=== PATIENT | female | born 1975 | race Caucasian/White ===

== ENCOUNTER → 2018-02-13 07:41 | Outpatient (CLI) | payer BC, SELFPAY ==
--- NOTE | 2018-02-13 13:20 | ASPS_PTH ---
PATIENT: NEREYDA FROST LOC: [facility] U#:[id number] AGE/SX: 49/F ROOM: RE02/13/[address]: Dr. Mahad Hilliard MD : 1975 BED: DIS: SPEC #: [id number] RECD: 02/14/18 07:28 STATUS: ZIA JACKY #: [id number] JOSHUA: 02/13/18 13:[address]: Mahad Hilliard DEPT: CYTOLOGY RECD BY: Niall Elam ENTERED: 02/14/18 08:47 SP TYPE: ASPIRATION OTHR DR: Dr. Brando Chaudhry DO Tissues: Thyroid gland, NOS Procedures: Pap Stain (control) Special Stain Group II Cytology Other HEADER OPERATION: Left thyroid FNA PRE-OP DIAGNOSIS: Left thyroid nodules TISSUE SUBMITTED: Left thyroid slides (8 slides) DIAGNOSIS CYTOLOGY Left thyroid nodule, FNA (smears): Consistent with benign follicular nodule. Adequate for evaluation. See comment. SJ:bossman 02/15/18 COMMENT Please make reference to previous specimen ([id number]), left thyroid nodule, ultrasound-guided FNA with diagnosis of benign follicular nodule, favor colloid nodule. Correlation with clinical, radiologic findings and appropriate follow up are necessary. CYTOLOGY STUDY Slides are reviewed. CYTOLOGY GROSS Received are eight smears labeled with the patient's name and designated per the requisition as left thyroid. Submitted for staining. / 02/14/18 TC:5 CPT: 72879
== END ==
PROVIDERS: Family Provider Student in an Organized Health Care Education/Training Program; PCP Student in an Organized Health Care Education/Training Program; Referring Provider Surgery; Visit Provider Surgery
DX: E04.1 Nontoxic single thyroid nodule (principal)
CPT/HCPCS: 88161; 88313

== ENCOUNTER → 2019-03-13 10:52 | Outpatient (CLI) | payer BC, SELFPAY ==
[2019-03-13 10:40] VITALS: BMI 20.7
--- NOTE | 2019-03-13 10:53 | RAD_ITS ---
STUDY: X-RAY - LUMBAR SPINE REASON FOR EXAM: Female, 43 years old. Low back pain TECHNIQUE: 4 view(s) of the lumbar spine were obtained including flexion and extension. COMPARISON: None FINDINGS: Normal lumbar lordosis. There is moderate to severe dextro scoliosis. There is a normal alignment of the vertebrae. No evidence for acute fracture or subluxation. There is narrowing of the L4-5 and L5-S1 disc spaces. Films obtained in flexion-extension demonstrate no evidence for gross instability The soft tissue structures are unremarkable. RAD/L/S Spine Min 4 Views IMPRESSION: Scoliosis and degenerative changes. No acute fracture or other significant bony pathology Electronically Signed: Jaron Rodriguez MD at 22:58 EDT , Service support ,
== END ==
PROVIDERS: Family Provider Student in an Organized Health Care Education/Training Program; PCP Student in an Organized Health Care Education/Training Program; Referring Provider Physician Assistant; Visit Provider Physician Assistant
DX: M54.5 Low back pain (principal)
CPT/HCPCS: 72110

== ENCOUNTER 2019-05-05 07:00 | Outpatient (RCR) | payer BC, SELFPAY ==
[2019-03-13 10:40] VITALS: BMI 20.7
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
--- NOTE | 2019-05-05 07:49 | HP.PTDCSUM ---
HP - PT D/C Summary It has been my pleasure to treat NEREYDA FROST under orders from ELSY Nesbitt, for the diagnosis of SI Joint Dysfunction for a total of 6 visit(s). Discharge Date: Please see the following information for a summary of their discharge status. - Subjective Subjective: Patient reports that she is a lot better- she is really happy with her progress and is I with HEP in the gym. Would like a print off of her exercises to take with her to the [facility] - Overall Improvement % Improvement: 98 - Objective Objective/Function: Patient was able to complete without incidence. When arriving at the clinic pt pelvis was slightly rotated. She was easily corrected with MET technique. Given written HEP and appropriate for d/c- encouarged to call if questions arise. - Goals Goal 1:: Pt. will be I w/ HEP & progression Goal 2:: Pt. will demo 5/5 hip strength Goal 3:: Pt. will amb. > 300 ft w/ normalized gait pattern. Goal 4:: Pt. will maintain proper posture t/o tx session to demo improved core strength. - Plan Plan: Discharge to I HEP - D/C Information If there are questions or concerns regarding this patient's physical therapy, please feel free to call me at [phone]. Thank you for the referral of this patient. Sincerely, Iwona Figueroa DPT
== END 2019-05-05 19:00 | disposition home or self-care (01) ==
LOC: PT 07:00
PROVIDERS: Family Provider Student in an Organized Health Care Education/Training Program; PCP Student in an Organized Health Care Education/Training Program; Referring Provider Physician Assistant; Visit Provider Physician Assistant
DX: M54.5 Low back pain (principal); M53.3 Sacrococcygeal disorders, not elsewhere classified
CPT/HCPCS: 97110; 97161; 97530

== ENCOUNTER 2023-08-03 15:45 | Emergency (ER) | payer BC, SELFPAY ==
[2023-08-03 15:46] VITALS: BP 117/90; PULSE 79; RESP 18; TEMP 36.7; O2SAT 99; BMI 21.2
--- NOTE | 2023-08-03 16:27 | CT_ITS ---
STUDY: CT ABDOMEN AND PELVIS WITH CONTRAST REASON FOR EXAM: Female, 47 years old. RLQ pain RADIATION DOSAGE (If Supplied By Facility): CTDIvol = ( 11.27 ) mGy, DLP = ( 438.87 ) mGycm TECHNIQUE: Transaxial images were obtained from the dome of the diaphragm to the symphysis pubis without oral contrast. IV 100mL Isovue-300 was administered. Sagittal and coronal images were reconstructed. Individualized dose optimization techniques were used for this CT. COMPARISON: None. FINDINGS: The visualized lung bases are unremarkable. The visualized portions of the heart are within normal limits. Normal liver. There are surgical clips in the gallbladder fossa consistent with a prior cholecystectomy. Normal spleen. Normal pancreas. Normal bilateral adrenal glands. Normal right kidney. Normal left kidney. Evaluation of the GI tract is limited by absence of oral contrast. Cannot exclude stomach wall thickening. No dilated loops of bowel or evidence for obstruction. Cannot exclude segmental thickening of the peres of the small or large bowel. Cannot exclude enteritis or colitis. Moderate diffuse fecal retention. Appendix within normal limits. Normal abdominal aorta. Normal inferior vena cava. Normal retroperitoneum. Normal urinary bladder. Moderately large uterus for age. Thickened endometrial echoes measuring 1.6 cm across. Pelvic ultrasound is recommended. Normal abdominal wall. Normal osseous structures. CT/Abdomen/Pelvis W IV Cont ONLY IMPRESSION: Suspicious appearance of the uterus and endometrial echoes. Pelvic ultrasound recommended. No other definite abnormalities. Electronically Signed: Isac Malone MD at 17:55 EDT ,
--- NOTE | 2023-08-03 16:29 | ED.VIS.GI ---
HPI <ELSY Harris - Last Filed: 08/03/23 21:37> HPI - GI History of Present Illness Chief Complaint: Abd Pain Narrative Narrative: Patient presenting today due to nausea and right lower quadrant abdominal pain that started around 3:30 AM this morning and woke her out of her sleep. She reports that the pain has been sharp and constant since. She has noticed that she has been burping and passing more gas today. She reports a previous history of cholecystectomy, no other abdominal surgeries. She went to urgent care and they urged her to come into the emergency department due to concerns for appendicitis. She denies any history of ovarian cysts or kidney stones. She denies fevers, chills, urinary symptoms, vomiting, and diarrhea. PFSH <ELSY Harris - Last Filed: 08/03/23 21:37> [facility] Medical History (Updated 08/03/23 @ 22:[address] 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,borag oils 200 mg capsule 1 cap PO DAILY 02/07/18 [History Last Taken 08/03/23] magnesium 30 mg tablet 30 mg PO DAILY 02/07/18 [History Last Taken 08/03/23] potassium chloride 10 mEq tablet,extended release 10 meq PO DAILY 02/07/18 [History Last Taken 08/03/23] zinc 50 mg tablet 50 mg PO DAILY 02/07/18 [History Last Taken 08/03/23] Allergy/AdvReac Type Severity Reaction Status Date / Time albuterol [From Ventolin HFA] AdvReac Mild hyperventil Verified 08/03/23 15:46 ation Family History Brother Psoriatic arthritis Surgical History History of arthroscopy History of cholecystectomy History of colonoscopy History of esophagogastroduodenoscopy (EGD) Social History Smoking Status: Never smoker ROS <ELSY Harris - Last Filed: 08/03/23 21:37> ROS ED Constitutional Constitutional ED: Denies chills or fever(s) Cardiovascular Cardiovascular: Denies chest pain Respiratory/Chest Respiratory/Chest: Denies cough or dyspnea Gastrointestinal Gastrointestinal: Reports abdominal pain and nausea; Denies constipation, diarrhea, melena or vomiting Genitourinary Genitourinary ED: Denies dysuria, hematuria or urinary urgency Musculoskeletal Musculoskeletal: Denies arthralgias or myalgias Integumentary Denies rash Neurologic Neurologic: Denies weakness EXAM <ELSY Harris - Last Filed: 08/03/23 21:37> Physical Exam Const Vital Signs: 08/03/23 15:46 08/03/23 17:46 08/03/23 19:00 Temperature 98.1 F 98.4 F 98.3 F Temperature Source Temporal Temporal Temporal Pulse Rate 79 76 74 Respiratory Rate 18 16 18 Blood Pressure 117/90 H 112/74 118/70 Blood Pressure Mean 99 86 86 Pulse Ox 99 99 100 Oxygen Delivery Method Room Air Room Air Room Air 08/03/23 21:00 Temperature Temperature Source Pulse Rate 78 Respiratory Rate 16 Blood Pressure 117/70 Blood Pressure Mean 85 Pulse Ox 99 Oxygen Delivery Method Room Air Positive well nourished, well developed and no apparent distress General Appearance ED: well developed HEENT Reports normocephalic and head/scalp atraumatic Mouth ED: Yes moist mucous membranes normal Eyes PERRL and EOMs intact bilaterally Neck full ROM and supple Chest Wall inspection of chest normal Resp normal respiratory effort and clear to auscultation bilaterally Cardio regular rate and regular rhythm GI soft to palpation, non-distended and no masses GI Narrative: Tenderness to McBurney's point, positive Rovsing sign, no rigidity, guarding, or peritoneal signs. Back/Spine normal ROM and normal to inspection Extremity normal to inspection and full ROM Neuro oriented x3, CN's II-XII intact bilaterally, moves all extremities, no focal motor deficits and no sensory deficits noted Sensorium / Orientation: awake and alert Psych mental status grossly normal and thought process normal Skin no rashes or lesions noted and no wounds <Dr. Frandy Ramirez MD - Last Filed: 08/03/23 22:26> Physical Exam Const Vital Signs: 08/03/23 15:46 08/03/23 17:46 08/03/23 19:00 Temperature 98.1 F 98.4 F 98.3 F Temperature Source Temporal Temporal Temporal Pulse Rate 79 76 74 Respiratory Rate 18 16 18 Blood Pressure 117/90 H 112/74 118/70 Blood Pressure Mean 99 86 86 Pulse Ox 99 99 100 Oxygen Delivery Method Room Air Room Air Room Air 08/03/23 21:00 Temperature Temperature Source Pulse Rate 78 Respiratory Rate 16 Blood Pressure 117/70 Blood Pressure Mean 85 Pulse Ox 99 Oxygen Delivery Method Room Air [facility] <ELSY Harris - Last Filed: 08/03/23 21:37> [facility] Narrative Medical decision making narrative: Patient presenting with right lower quadrant abdominal pain that started around 3:30 AM this morning. She is tender to McBurney's point. Vitals are unremarkable, she is nontoxic-appearing and in no acute distress. She will be given IV Toradol and Zofran for pain and nausea. CT scan of the abdomen and pelvis will be obtained to rule out appendicitis, ovarian cyst, kidney stone, and other abdominal etiology. Labs will be obtained. CT of the abdomen pelvis is limited due to lack of oral contrast but does recommend obtaining a pelvic ultrasound due to abnormal enlarged uterus. Pelvic ultrasound also shows large uterus but overall is unremarkable. Examination she reports she still does have some mild right lower quadrant pain and her abdomen does continue to be tender. I did offer to obtain a CT scan with p.o. contrast and patient would like to have this done to definitively rule out appendicitis. CT is pending. I have personally performed a face to face assessment of the patient and have reviewed the JUDAH Note. I performed a substantive portion of the visit including all aspects of the following. My sosa findings include: History is 47-year-old female history of prior cholecystectomy complaining of right lower quadrant abdominal pain beginning around 3:30 this morning. No prior history. No trauma. No dysuria. No history of kidney stones. No fever. No vomiting, diarrhea or constipation. No recent weight change. Exam is [well-appearing 47-year-old female. Vital signs are stable. She does not look septic toxic or in any distress. H EENT exam unremarkable. Neck nontender no JVD. No lymphadenopathy. Lungs clear to auscultation bilaterally. Heart regular rhythm rate about 75 no murmur. Abdomen soft nondistended normal bowel sounds no peritoneal signs. Mild right lower quadrant tenderness. Also tender on the left side. No organomegaly or masses. No hernia. No distention. No signs of obstruction. No signs of trauma. Back nontender. Moving all 4 extremities. Nontender no edema. Neurologically she is awake and alert with no focal motor deficits.] Medical Decision Making [47-year-old female right lower quadrant abdominal pain CAT scan labs are pending. No urinary symptoms. Urine grossly looks clean.] Other additions or changes: [None] Lab Data Labs: Laboratory Results - last 24 hr 08/03/23 08/03/23 16:30 16:40 WBC 7.3 RBC 4.43 Hgb 13.1 Hct 39.8 MCV 89.8 MCH 29.6 MCHC 32.9 RDW Std Deviation 43.5 RDW Coeff of Dilip 13.1 Plt Count 319 MPV 9.2 Immature Gran % (Auto) 0.100 Neut % (Auto) 58.6 Lymph % (Auto) 30.5 [place] % (Auto) 6.2 Eos % (Auto) 3.6 Baso % (Auto) 1.0 Absolute Neuts (auto) 4.3 Absolute Lymphs (auto) 2.22 Nucleated RBC % 0 Sodium 137 Potassium 3.3 L Chloride 103 Carbon Dioxide 31.0 Anion Gap 3 L BUN 9 Creatinine 0.72 Estim Creat Clear Calc 94.94 Est GFR (MDRD) Af Amer 111 Est GFR (MDRD) Non-Af 92 BUN/Creatinine Ratio 12.4 Glucose 84 Calcium 8.5 Total Bilirubin 0.50 AST 17 ALT 25 Alkaline Phosphatase 61 Total Protein 7.2 Albumin 3.5 Globulin 3.7 Albumin/Globulin Ratio 0.9 Lipase 28 Serum , Qual NEGATIVE Urine Color Yellow Urine Clarity Clear Urine pH 7.0 Ur Specific [place] 1.010 Urine Protein Negative Urine Glucose (UA) Normal Urine Ketones Negative Urine Occult Blood Negative Urine Nitrite Negative Urine Bilirubin Negative Urine Urobilinogen Normal Ur Leukocyte Esterase Negative Urine RBC 0 SEEN Urine WBC 0 SEEN Ur Squamous Epith Cells 0 SEEN Urine Bacteria 0 SEEN Urine Mucus 0 SEEN Radiography Diagnostic Testing: Clinical Impression(s) from Imaging Studies Abdomen/Pelvis CT 08/03/23 16:27 IMPRESSION: Suspicious appearance of the uterus and endometrial echoes. Pelvic ultrasound recommended. No other definite abnormalities. Electronically Signed: Isac Malone MD at 17:55 EDT , Transvaginal US 08/03/23 18:08 IMPRESSION: Uterus is larger than typical for age. Prominently abnormal endometrial echoes. Further evaluation such as direct visualization and/or sampling. Electronically Signed: Isac Malone MD at 18:58 EDT , Abdomen CT 08/03/23 21:40 IMPRESSION: No suspicious solid organ abnormality Enlarged uterus, likely containing underlying fibroids, please see dedicated pelvic ultrasound performed earlier today for further details No free intraperitoneal fluid, air, or suspicious adenopathy Electronically Signed: Matteo Weber MD at 22:14 EDT , <Dr. Frandy Ramirez MD - Last Filed: 08/03/23 22:26> [facility] MDM Narrative Medical decision making narrative: Patient presenting with right lower quadrant abdominal pain that started around 3:30 AM this morning. She is tender to McBurney's point. Vitals are unremarkable, she is nontoxic-appearing and in no acute distress. She will be given IV Toradol and Zofran for pain and nausea. CT scan of the abdomen and pelvis will be obtained to rule out appendicitis, ovarian cyst, kidney stone, and other abdominal etiology. Labs will be obtained. CT of the abdomen pelvis is limited due to lack of oral contrast but does recommend obtaining a pelvic ultrasound due to abnormal enlarged uterus. Pelvic ultrasound also shows large uterus but overall is unremarkable. Examination she reports she still does have some mild right lower quadrant pain and her abdomen does continue to be tender. I did offer to obtain a CT scan with p.o. contrast and patient would like to have this done to definitively rule out appendicitis. CT is pending. I have personally performed a face to face assessment of the patient and have reviewed the JUDAH Note. I performed a substantive portion of the visit including all aspects of the following. My sosa findings include: History is 47-year-old female history of prior cholecystectomy complaining of right lower quadrant abdominal pain beginning around 3:30 this morning. No prior history. No trauma. No dysuria. No history of kidney stones. No fever. No vomiting, diarrhea or constipation. No recent weight change. Exam is [well-appearing 47-year-old female. Vital signs are stable. She does not look septic toxic or in any distress. H EENT exam unremarkable. Neck nontender no JVD. No lymphadenopathy. Lungs clear to auscultation bilaterally. Heart regular rhythm rate about 75 no murmur. Abdomen soft nondistended normal bowel sounds no peritoneal signs. Mild right lower quadrant tenderness. Also tender on the left side. No organomegaly or masses. No hernia. No distention. No signs of obstruction. No signs of trauma. Back nontender. Moving all 4 extremities. Nontender no edema. Neurologically she is awake and alert with no focal motor deficits.] Medical Decision Making [47-year-old female right lower quadrant abdominal pain CAT scan labs are pending. No urinary symptoms. Urine grossly looks clean.] Other additions or changes: [None] Repeat exam patient is doing well at 10:20 PM. Her abdomen is benign. I went over all test results with both her and her . Her lab works unremarkable. Her UA is normal. CAT scan shows no signs of appendicitis or any other acute intra-abdominal pathology. CAT scan and ultrasound show an enlarged uterus of uncertain etiology. She will follow-up with her COMPUTER SYSTEMS HARDWARE ANALYST Dr. Elba Mcgregor regarding that. Tylenol and Motrin for pain. Lab Data Attestation: I reviewed the patient's lab results. Lab results narrative: CBC white count of 7. H&H 13 and 39. Platelets 319. Electrolytes show potassium 3.3 gap of 3. Normal BUN and creatinine. Normal liver enzymes. Normal lipase of 28. Serum test negative. UA normal. No white or red cells. No nitrates or bacteria. CAT scan shows a normal appendix per the radiologist. Uterus appears abnormal per the radiologist. Therefore a transvaginal pelvic ultrasound was done shows a large uterus with abnormal echoes which will need further evaluation which I will discuss with the patient and her . Labs: Laboratory Results - last 24 hr 08/03/23 08/03/23 16:30 16:40 WBC 7.3 RBC 4.43 Hgb 13.1 Hct 39.8 MCV 89.8 MCH 29.6 MCHC 32.9 RDW Std Deviation 43.5 RDW Coeff of Dilip 13.1 Plt Count 319 MPV 9.2 Immature Gran % (Auto) 0.100 Neut % (Auto) 58.6 Lymph % (Auto) 30.5 [place] % (Auto) 6.2 Eos % (Auto) 3.6 Baso % (Auto) 1.0 Absolute Neuts (auto) 4.3 Absolute Lymphs (auto) 2.22 Nucleated RBC % 0 Sodium 137 Potassium 3.3 L Chloride 103 Carbon Dioxide 31.0 Anion Gap 3 L BUN 9 Creatinine 0.72 Estim Creat Clear Calc 94.94 Est GFR (MDRD) Af Amer 111 Est GFR (MDRD) Non-Af 92 BUN/Creatinine Ratio 12.4 Glucose 84 Calcium 8.5 Total Bilirubin 0.50 AST 17 ALT 25 Alkaline Phosphatase 61 Total Protein 7.2 Albumin 3.5 Globulin 3.7 Albumin/Globulin Ratio 0.9 Lipase 28 Serum , Qual NEGATIVE Urine Color Yellow Urine Clarity Clear Urine pH 7.0 Ur Specific [place] 1.010 Urine Protein Negative Urine Glucose (UA) Normal Urine Ketones Negative Urine Occult Blood Negative Urine Nitrite Negative Urine Bilirubin Negative Urine Urobilinogen Normal Ur Leukocyte Esterase Negative Urine RBC 0 SEEN Urine WBC 0 SEEN Ur Squamous Epith Cells 0 SEEN Urine Bacteria 0 SEEN Urine Mucus 0 SEEN Radiography Diagnostic Testing: Clinical Impression(s) from Imaging Studies Abdomen/Pelvis CT 08/03/23 16:27 IMPRESSION: Suspicious appearance of the uterus and endometrial echoes. Pelvic ultrasound recommended. No other definite abnormalities. Electronically Signed: Isac Malone MD at 17:55 EDT , Transvaginal US 08/03/23 18:08 IMPRESSION: Uterus is larger than typical for age. Prominently abnormal endometrial echoes. Further evaluation such as direct visualization and/or sampling. Electronically Signed: Isac Malone MD at 18:58 EDT , Abdomen CT 08/03/23 21:40 IMPRESSION: No suspicious solid organ abnormality Enlarged uterus, likely containing underlying fibroids, please see dedicated pelvic ultrasound performed earlier today for further details No free intraperitoneal fluid, air, or suspicious adenopathy Electronically Signed: Matteo Weber MD at 22:14 EDT Reading Location ID and State: [facility] / [place] , Service support , Discharge Plan Triage Chief Complaint: Abd Pain ED Midlevel Provider: Sherice Parisi ED Provider: Frandy Ramirez Dx/Rx/DC Orders Clinical Impression: Enlarged uterus, Abdominal pain Instructions: Abdominal Pain Prescriptions: No Action potassium chloride 10 mEq tablet extended release 10 meq PO DAILY magnesium 30 mg tablet 30 mg PO DAILY fish,flaxseed oil-e.prim-bcurr 400-400-200 mg capsule 1 cap PO DAILY zinc 50 mg tablet 50 mg PO DAILY Primary Care Provider: Brando Chaudhry Referrals: Brando Chaudhry, [Primary Care Provider] - As Needed Elba Mcgregor MD [Med Staff - Active Staff] - As soon as possible Activity Restrictions/Additional Instructions: We do not have a specific cause for your abdominal pain tonight. Incidentally on the CAT scan they saw your uterus to be slightly enlarged. The ultrasound showed similar but no specific cause. Call and follow-up with your COMPUTER SYSTEMS HARDWARE ANALYST, Dr. Elba Mcgregor next week to be seen in follow-up in the next 1 to 2 weeks to have this further evaluated. Otherwise your other labs and urinalysis are unremarkable. Disposition Disposition: Home, Self Care
[2023-08-03 16:43] LABS: Bacteria 0 SEEN /hpf (None Seen); Mucous, Urine 0 SEEN /hpf (<or=2+); Red Blood Cells-Urine 0 SEEN /hpf (0-5); Squamous Epithelial Cells - UA 0 SEEN /hpf (5-10); White Blood Cells 0 SEEN /hpf (0-5)
[2023-08-03] MEDS: Ondansetron 4 MG/2 ML Vial IV (16:47)
[2023-08-03] MEDS: Ketorolac 15 MG/ML Vial IV (16:47)
[2023-08-03 16:55] LABS: Absolute Lymphocyte Count 2.22 X10^3/uL (0.83-4.51); Absolute Neutrophil Count 4.3 X10^3/uL (2.0-7.7); Basophil# 0.07 X10^3/uL; Eosinophil# 0.26 X10^3/uL; Eosinophils% 3.6 % (0-5); Hematocrit 39.8 % (37-47); Hemoglobin 13.1 g/dL (12.0-15.0); Lymphocyte # 2.22 X10^3/ul (0.83-4.51); Lymphocyte % 30.5 % (19-41); Mean Corp Hgb Conc 32.9 g/dL (32-36); Mean Corpuscular Hgb 29.6 pg (27.0-32.0); Mean Corpuscular Volume 89.8 fL (81-99); Mean Platelet Vol. 9.2 fl (6.2-12.0); Monocyte# 0.45 X10^3/uL; Monocyte% 6.2 % (0-10); NRBC Flagged by Analyzer 0 % (0-5); Neutrophil # 4.28 X10^3/uL (2.7-7.7); Neutrophil % 58.6 % (47-70); Platelet Count 319 K/mm3 (150-450); RBC Distribution Width CV 13.1 % (11.6-14.6); RBC Distribution Width SD 43.5 fl (35.1-43.9); Red Blood Count 4.43 M/mm3 (4.2-5.4); White Blood Count 7.3 K/mm3 (4.4-11.0)
[2023-08-03 17:05] LABS: Color, Urine Yellow (Yellow); Glucose, Dipstick Normal (Normal); Ketone-Dipstick Negative (Negative); Leukocyte Esterase-Dipstick Negative /ul (Negative); Nitrite-Dipstick Negative (Negative); Occult Blood-Urine Negative /ul (Negative); Protein-Dipstick Negative (Negative); Urine Bilirubin Dipstick Negative (Negative); Urine Clarity Clear (Clear); Urine Urobilinogen Normal (Normal)
[2023-08-03 17:12] LABS: ALB/GLOB Ratio 0.9 RATIO (0.9-2.4); AST(SGOT) 17 U/L (15-37); Alanine Aminotransfer ALT/SGPT 25 U/L (13-56); Albumin, Serum 3.5 g/dL (3.2-5.0); Alkaline Phosphatase 61 U/L (45-117); Anion Gap 3 (5-15); BUN 9 mg/dL (7-18); BUN/Creat Ratio 12.4 RATIO (10-20); Calcium,Total 8.5 mg/dL (8.5-10.1); Chloride 103 mmol/L (98-107); Creatinine, Serum 0.72 mg/dL (0.55-1.02); EST Glomerular Filtration Rate 92 mL/min (>60); Est Glom Filt Rate - Afr Amer 111 mL/min (>60); Estimated Creatinine Clearance 94.94 ml/min; Globulin 3.7 g/dL (2.2-4.2); Glucose 84 mg/dL (74-106); Lipase 28 U/L (13-75); Potassium 3.3 mmol/L (3.5-5.1); Protein, Total 7.2 g/dL (6.4-8.2); Sodium Level 137 mmol/L (136-145)
[2023-08-03 17:17] LABS: Internal QC Validated? YES +Cl - CLEAR BKGD; Pregnancy, Serum, hCG Quali. NEGATIVE Negative
[2023-08-03 17:46] VITALS: BP 112/74; PULSE 76; RESP 16; TEMP 36.9; O2SAT 99
--- NOTE | 2023-08-03 18:08 | US_ITS ---
STUDY: ULTRASOUND TRANSVAGINAL CLINICAL: Female, 47 years old. RLQ pain TECHNIQUE: Transvaginal COMPARISON: CT scan of the same day. FINDINGS: Normal uterine size measuring 10.8 x 6.1 x 5.3 cm in maximal craniocaudal dimension. There is a 1.9 cm fibroid. Endometrial echoes measure 2 cm thickness, abnormal for age. Endometrial echoes are also prominently heterogeneous and hypervascular. Polyps cannot be excluded. Recommend direct visualization and endometrial sampling. Nabothian cysts of the uterine cervix. Normal right ovary, measuring 3.0 x 2.4 x 2.2 cm. There is a 1.9 cm cyst. There is normal blood flow. Normal left ovary, measuring 2.9 x 2.1 x 1.6 cm. There is a 1.6 cm cyst. There is normal blood flow. There is mild free fluid in the pelvis. Polycystic ovary disease: No. US/Transvaginal Non- IMPRESSION: Uterus is larger than typical for age. Prominently abnormal endometrial echoes. Further evaluation such as direct visualization and/or sampling. Electronically Signed: Isac Malone MD at 18:58 EDT ,
[2023-08-03 19:00] VITALS: BP 118/70; PULSE 74; RESP 18; TEMP 36.8; O2SAT 100
[2023-08-03 21:00] VITALS: BP 117/70; PULSE 78; RESP 16; O2SAT 99
--- NOTE | 2023-08-03 21:40 | CT_ITS ---
STUDY: CT ABDOMEN AND PELVIS WITHOUT CONTRAST REASON FOR EXAM: Female, 47 years old. RLQ pain RADIATION DOSAGE (If Supplied By Facility): CTDIvol = ( 6.49 ) mGy, DLP = ( 311.38 ) mGycm TECHNIQUE: Transaxial images were obtained from the dome of the diaphragm to the symphysis pubis with oral contrast, and without intravenous contrast. Sagittal and coronal images were reconstructed. There is retained contrast in the kidneys and collecting systems Individualized dose optimization techniques were used for this CT. COMPARISON: Earlier today FINDINGS: The visualized lung bases are unremarkable. The visualized portions of the heart are within normal limits. Normal liver. There are surgical clips in the gallbladder fossa consistent with a prior cholecystectomy. Normal spleen. Normal pancreas. Normal bilateral adrenal glands. Normal right kidney. Normal left kidney. Excreted contrast noted throughout both ureters and into the bladder. Normal visualized stomach. Normal small intestine. Normal colon. There is non-visualization of the appendix. Normal abdominal aorta. Normal inferior vena cava. Normal retroperitoneum. Normal urinary bladder. Uterus is mildly enlarged and likely has underlying fibroids, please see dedicated pelvic ultrasound performed earlier today. There is a small amount of dependent free fluid in the cul-de-sac which is likely physiologic Normal abdominal wall. Normal osseous structures. CT/Abdomen/Pel W ORAL Cont Only IMPRESSION: No suspicious solid organ abnormality Enlarged uterus, likely containing underlying fibroids, please see dedicated pelvic ultrasound performed earlier today for further details No free intraperitoneal fluid, air, or suspicious adenopathy Electronically Signed: Matteo Weber MD at 22:14 EDT ,
[2023-08-03 22:53] VITALS: BP 112/78; PULSE 80; RESP 16; TEMP 36.6; O2SAT 99
== END 2023-08-03 22:55 | disposition home or self-care (01) ==
PROVIDERS: Physician Assistant; Emergency Provider Emergency Medicine; PCP Student in an Organized Health Care Education/Training Program; Visit Provider Emergency Medicine
DX: N85.2 Hypertrophy of uterus (principal); R11.0 Nausea; R10.813 Right lower quadrant abdominal tenderness; Z90.49 Acquired absence of other specified parts of digestive tract; R10.31 Right lower quadrant pain
CPT/HCPCS: 74176; 74177; 76830; 80053; 81001; 83690; 84703; 85025; 96374; 96375; 99283; Q9967; A4216; J2405